=== PATIENT | female | born 1990 | race Caucasian/White ===

== ENCOUNTER 2018-03-29 14:21 | Emergency (ER) | payer SELFPAY ==
[2018-03-29 15:16] LABS: BASOPHILS % (AUTO) 2 % (0-3); EOSINOPHILS % (AUTO) 3 % (0-9); HEMATOCRIT 39 % (35-47); HEMOGLOBIN 13.8 gm/dl (12.0-15.5); LYMPHOCYTES % (AUTO) 26.2 % (10-50); MEAN CORPUSCULAR HEMOGLOBIN 31.1 pg (27.0-32.0); MEAN CORPUSCULAR HGB CONC 35.5 gm/dl (32.0-36.0); MEAN CORPUSCULAR VOLUME 88 fL (81-99); MONOCYTES % (AUTO) 13.9 % (0-12); NEUTROPHILS % (AUTO) 55.2 % (37-80)
[2018-03-29 15:38] LABS: ALBUMIN 3.8 gm/dl (3.4-5.0); ALCOHOL < 0.003 gm/dl (0.000-0.08); ALKALINE PHOSPHATASE 71 IU/L (46-116); ALT 39 IU/L (14-63); AST 31 IU/L (15-37); BILIRUBIN,TOTAL 0.2 mg/dl (0.2-1.0); BLOOD UREA NITROGEN 8 mg/dl (7-18); CALCIUM 8.9 mg/dl (8.5-10.1); CARBON DIOXIDE 27.3 mEq/L (21-32); CHLORIDE 105 mMol/L (98-107); CREATININE 0.85 mg/dl (0.60-1.00); GLOM FILT RATE 81 mL/min (>60); GLUCOSE 123 mg/dl (74-106); POTASSIUM 3.5 mMol/L (3.5-5.1); SODIUM 138 mMol/L (136-145); THYROID STIMULATING HORMONE 1.215 uIU/ml (0.358-3.740); TOTAL PROTEIN 7.4 gm/dl (6.4-8.2)
[2018-03-29 15:46] VITALS: BP 130/69; PULSE 102; RESP 16; TEMP 96.7; O2SAT 100
[2018-03-29 16:00] LABS: APPEARANCE,URINE Clear; BILIRUBIN,URINE NEGATIVE (NEGATIVE); COLOR,URINE Light yellow; GLUCOSE, URINE (UA) NEGATIVE (NEGATIVE); KETONES,URINE NEGATIVE (NEGATIVE); LEUKOCYTE ESTERASE ,URINE 1+ (NEGATIVE); NITRATE,URINE NEGATIVE (NEGATIVE); OCCULT BLOOD,URINE 1+ (NEG-TRACE); PH,URINE 6.5; UROBILINOGEN,URINE 0.2 (0.2-1.0 EU)
[2018-03-29 16:12] LABS: AMPHETAMINES NEGATIVE (NEGATIVE); BARBITUATES NEGATIVE (NEGATIVE); BENZODIAZEPINES NEGATIVE (NEGATIVE); CANNABINOL(THC) NEGATIVE (NEGATIVE); COCAINE(COC) NEGATIVE (NEGATIVE); METHADONE NEGATIVE (NEGATIVE); METHAMPHETAMINES NEGATIVE (NEGATIVE); OPIATES(OP13) POSITIVE (NEGATIVE); OXYCODONE(OXY) NEGATIVE (NEGATIVE); PROPOXYPHENE(PPX) NEGATIVE (NEGATIVE); TRICYCLIC ANTIDEPRESSANTS POSITIVE (NEGATIVE)
[2018-03-29 16:21] LABS: BACTERIA 1+ (< 1+); CRYSTALS NEGATIVE (0-3 AVE/HPF)
== END 2018-03-29 17:52 | disposition home or self-care (01) | DRG 880 ==
LOC: ED 14:21
DX: R45.851 Suicidal ideations (principal); F32.9 Major depressive disorder, single episode, unspecified; F12.90 Cannabis use, unspecified, uncomplicated; F11.90 Opioid use, unspecified, uncomplicated
CPT/HCPCS: 36415; 80053; 80305; 80307; 81001; 84443; 84703; 85025; 99282; 99283

== ENCOUNTER 2018-05-04 18:00 | Emergency (ER) | payer OTHER ==
[2018-05-04] MEDS ORDERED: SODIUM CHLORIDE 0.9% 1000ML 1,000 ML IV ONE (18:30)
[2018-05-04 18:35] LABS: APPEARANCE,URINE Cloudy; BILIRUBIN,URINE NEGATIVE (NEGATIVE); COLOR,URINE Yellow; GLUCOSE, URINE (UA) NEGATIVE (NEGATIVE); KETONES,URINE NEGATIVE (NEGATIVE); LEUKOCYTE ESTERASE ,URINE 2+ (NEGATIVE); NITRATE,URINE NEGATIVE (NEGATIVE); OCCULT BLOOD,URINE 2+ (NEG-TRACE); UROBILINOGEN,URINE 0.2 (0.2-1.0 EU)
[2018-05-04 18:37] VITALS: TEMP 97.3
[2018-05-04] MEDS ORDERED: ACTIVATED CHARCOAL SUS ONE (18:43)
[2018-05-04] MEDS ORDERED: ACTIVATED CHARCOAL SUS PO ONE (18:45)
[2018-05-04 18:47] LABS: BASOPHILS % (AUTO) 1 % (0-3); EOSINOPHILS % (AUTO) 2 % (0-9); HEMATOCRIT 40 % (35-47); HEMOGLOBIN 13.7 gm/dl (12.0-15.5); LYMPHOCYTES % (AUTO) 27.75 % (10-50); MEAN CORPUSCULAR HEMOGLOBIN 30.2 pg (27.0-32.0); MEAN CORPUSCULAR HGB CONC 34.4 gm/dl (32.0-36.0); MEAN CORPUSCULAR VOLUME 88 fL (81-99); MONOCYTES % (AUTO) 8.9 % (0-12); NEUTROPHILS % (AUTO) 59.9 % (37-80)
[2018-05-04 18:51] LABS: EPITHELIAL CELLS PACKED FIELDS (SQUAMOUS); WBC,URINE UNABLE (0-5AV/HPF)
[2018-05-04 18:52] LABS: BACTERIA UNABLE (< 1+); CRYSTALS UNABLE (0-3 AVE/HPF); RBC,URINE UNABLE (0-3AV/HPF)
[2018-05-04 18:53] LABS: AMPHETAMINES NEGATIVE (NEGATIVE); BARBITUATES NEGATIVE (NEGATIVE); BENZODIAZEPINES NEGATIVE (NEGATIVE); CANNABINOL(THC) NEGATIVE (NEGATIVE); COCAINE(COC) NEGATIVE (NEGATIVE); METHADONE NEGATIVE (NEGATIVE); METHAMPHETAMINES NEGATIVE (NEGATIVE); OPIATES(OPI) POSITIVE (NEGATIVE); OXYCODONE(OXY) NEGATIVE (NEGATIVE); PROPOXYPHENE(PPX) NEGATIVE (NEGATIVE); TRICYCLIC ANTIDEPRESSANTS POSITIVE (NEGATIVE)
[2018-05-04 18:59] LABS: ALBUMIN 3.7 gm/dl (3.4-5.0); ALKALINE PHOSPHATASE 73 IU/L (46-116); ALT 33 IU/L (14-63); AST 20 IU/L (15-37); BILIRUBIN,TOTAL 0.4 mg/dl (0.2-1.0); BLOOD UREA NITROGEN 9 mg/dl (7-18); CALCIUM 8.6 mg/dl (8.5-10.1); CARBON DIOXIDE 26.4 mEq/L (21-32); CHLORIDE 105 mMol/L (98-107); CREATININE 0.79 mg/dl (0.60-1.00); GLUCOSE 109 mg/dl (74-106); SALICYLATE < 2.8 mg/dl (2.8-30.0); SODIUM 140 mMol/L (136-145); THYROID STIMULATING HORMONE 2.886 uIU/ml (0.358-3.740); TOTAL PROTEIN 7.3 gm/dl (6.4-8.2)
[2018-05-04 19:00] LABS: ACETAMINOPHEN < 2 ug/ml (10-30); ALCOHOL < 0.003 gm/dl (0.000-0.08)
[2018-05-04] MEDS ORDERED: SODIUM CHLORIDE 0.9% FLUSH 10 ML SOL IV PRN (19:42)
[2018-05-04 23:17] VITALS: O2SAT 97
[2018-05-04 23:32] VITALS: RESP 14
[2018-05-04 23:55] VITALS: BP 98/63; PULSE 107
== END 2018-05-05 00:24 | disposition short-term general hospital (02) ==
LOC: ED 18:00
DX: T14.91XA Suicide attempt, initial encounter (principal); F32.9 Major depressive disorder, single episode, unspecified; R53.1 Weakness
CPT/HCPCS: 80053; 80305; 80307; 81001; 84443; 84703; 85025; 87088; 87205; 93005; 96365; 99283; 99285